=== PATIENT | male | born 1980 | race Hispanic/Latino ===

== ENCOUNTER 2020-01-06 17:49 | Emergency (ER) | payer OTHER ==
[2020-01-06] MEDS ORDERED: Ibuprofen 600 MG Tab PO ONE (18:01)
--- NOTE | 2020-01-06 18:05 | EDM.PDOC ---
ED HPI GENERAL MEDICAL PROBLEM - General Chief Complaint: Lower Extremity Injury/Pain Stated Complaint: TWISTED RIGHT KNEE Time Seen by Provider: 01/06/20 18:00 Source of Information: Reports: Patient History Limitations: Reports: No Limitations - History of Present Illness INITIAL COMMENTS - FREE TEXT/NARRATIVE: ED with c/o pain to right knee, states stepped down on to knee same time turning, pelt popping sensation and pain since. Knee feel unsteady, Denies prior injury to knee. Has not tried anything for discomfort. Right Knee Pain Score (Numeric/FACES): 7 - Related Data Allergies Allergy/AdvReac Type Severity Reaction Status Date / Time No Known Allergies Allergy Verified 01/06/20 18:09 Home Meds: Home Meds . [No Known Home Meds] 01/06/20 [History] Review of Systems - Review of Systems Review Of Systems: Comprehensive ROS is negative, except as noted in HPI. ED EXAM, GENERAL - Physical Exam Exam: See Below Exam Limited By: No Limitations General Appearance: Alert, Mild Distress Eye Exam: Bilateral Eye: EOMI, PERRL Ears: Normal External Exam, Hearing Grossly Normal Nose: Normal Inspection Throat/Mouth: Normal Inspection Head: Atraumatic, Normocephalic Neck: Normal Inspection Cardiovascular: Normal Peripheral Pulses, Regular Rate, Rhythm GI/Abdominal: Normal Bowel Sounds, No Distention Back Exam: Normal Inspection, Full Range of Motion Extremities: Normal Inspection, Limited Range of Motion (slight limitiation with flexion, crepitus, tender with palpation laterally. ) Neurological: Alert, Oriented, Normal Cognition Course - Vital Signs Last Recorded V/S: Last Vital Signs Temp 98.2 F 01/06/20 17:58 Pulse 116 H 01/06/20 17:58 Resp 18 01/06/20 17:58 BP 133/87 01/06/20 17:58 Pulse Ox 96 01/06/20 17:58 - Orders/Labs/Meds Meds: Medications Discontinued Medications Generic Name Dose Route Start Last Admin Trade Name Freq PRN Reason Stop Dose Admin Ibuprofen 600 mg 01/06/20 18:01 01/06/20 18:20 Motrin PO 01/06/20 18:02 600 mg ONETIME ONE Administration Departure - Departure Time of Disposition: 18:42 Disposition: Home, Self-Care 01 Condition: Good Clinical Impression: Knee pain, right Qualifiers: Chronicity: acute Qualified Code(s): M25.561 - Pain in right knee Medial collateral ligament sprain of knee Qualifiers: Encounter type: initial encounter Laterality: right Qualified Code(s): S83.411A - Sprain of medial collateral ligament of right knee, initial encounter - Discharge Information *PRESCRIPTION DRUG MONITORING PROGRAM REVIEWED*: No *COPY OF PRESCRIPTION DRUG MONITORING REPORT IN PATIENT JEWEL: No Instructions: Knee Sprain, Adult, [id number] Forms: ED Department Discharge Additional Instructions: yulia wrap or knee support ice elevate alternate tylenol and ibuprofen every 4 hours as needed for discomfort clinic follow up one week if not improving Sepsis Event Note (ED) - Evaluation Sepsis Screening Result: No Definite Risk - Focused Exam Vital Signs: Vital Signs Temp Pulse Resp BP Pulse Ox 01/06/20 17:58 98.2 F 116 H 18 133/87 96
--- NOTE | 2020-01-06 18:38 | CR ---
PROCEDURE INFORMATION: Exam: XR Right Knee Exam date and time: 01/06/2020 6:23 PM Age: 40 years old Clinical indication: Other: Twisted; Additional info: [place] knee pop, medial pain TECHNIQUE: Imaging protocol: XR Right knee. Views: 3 views. COMPARISON: No relevant prior studies available. FINDINGS: Bones/joints: The bones are intact and normal in appearance. There is no evidence of acute or healing fracture. The joints are normally aligned and articulated. Allowing for nearly 90 degree flexion of the lateral projection, no knee joint effusion is identified. Soft tissues: The soft tissues are within normal limits. IMPRESSION: Normal exam.
== END 2020-01-06 18:53 | disposition home or self-care (01) ==
LOC: DL.ED 17:49
DX: S83.411A Sprain of medial collateral ligament of right knee, initial encounter (principal); X50.9XXA Other and unspecified overexertion or strenuous movements or postures, initial encounter
CPT/HCPCS: 73562; 99283; A9270

== ENCOUNTER 2020-12-23 19:37 | Emergency (ER) | payer MEDICAID, OTHER ==
[2020-12-23 20:40] LABS: ANION GAP 16.6 mEq/L (7-13); CHLORIDE,CL 103 mmol/L (98-107); SODIUM,NA 142 mmol/L (136-145)
--- NOTE | 2020-12-23 20:51 | EDM.PDOCBH ---
ED HPI GENERAL MEDICAL PROBLEM - General Chief Complaint: Behavioral/Psych Stated Complaint: SUICIDAL THOUGHTS Time Seen by Provider: 12/23/20 19:55 Source of Information: Reports: Patient, RN History Limitations: Reports: No Limitations - History of Present Illness INITIAL COMMENTS - FREE TEXT/NARRATIVE: ED with report of having had suicidal thought after argument with girlfriend. Admits ETOH today approximately 8 beers. Admits daily heavy ETOH use. Today argument with girlfriend regarding her daughter. Patient states does not feel suicidal at present. Just off phone talking with dad in [place] reports plan to go home to [facility] and then head to [place] tomorrow and be back around family. - Related Data Allergies Allergy/AdvReac Type Severity Reaction Status Date / Time No Known Allergies Allergy Verified 12/23/20 19:48 Home Meds: Home Meds . [No Known Home Meds] 01/06/20 [History] Past Medical History Musculoskeletal History: Reports: Fracture Other Musculoskeletal History: shattered L ankle in 1997, surgically repaired Psychiatric History: Reports: Suicidal Ideation - Past Surgical History Musculoskeletal Surgical History: Reports: Other (See Below) Other Musculoskeletal Surgeries/Procedures:: left hand surgery Social & Family History - Family History Family Medical History: No Pertinent Family History - Tobacco Use Tobacco Use Status *Q: Current Every Day Tobacco User Years of Tobacco use: 23 Packs/Tins Daily: 0.3 Second Hand Smoke Exposure: Yes - Caffeine Use Caffeine Use: Reports: Soda - Recreational Drug Use Recreational Drug Use: No ED ROS GENERAL - Review of Systems Review Of Systems: Comprehensive ROS is negative, except as noted in HPI. ED EXAM, BEHAVIORAL HEALTH - Physical Exam Exam: See Below Exam Limited By: No Limitations General Appearance: Alert, Anxious, Thin Eye Exam: Bilateral Eye: EOMI Ears: Normal External Exam, Hearing Grossly Normal Throat/Mouth: Normal Inspection Head: Atraumatic, Normocephalic Respiratory/Chest: No Respiratory Distress, Lungs Clear, Normal Breath Sounds Cardiovascular: Regular Rate, Rhythm GI/Abdominal: Soft Neurological: Alert, Normal Cognition Psychiatric: Alert, Normal Cognition Skin Exam: Warm, Normal color COURSE, BEHAVIORAL HEALTH COMP - Course Vital Signs: Last Vital Signs Temp 99.2 F 12/23/20 19:43 Pulse 97 12/23/20 19:43 Resp 18 12/23/20 19:43 BP 137/101 H 12/23/20 19:43 Pulse Ox 98 06/15/21 19:43 Orders, Labs, Meds: Laboratory Tests 12/23/20 12/23/20 12/23/20 Range/Units 19:53 20:03 20:03 WBC 5.7 (5.0-10.0) 10^3/uL RBC 4.68 (4.6-6.2) 10^6/uL Hgb 14.9 (14.0-18.0) g/dL Hct 45.1 (40.0-54.0) % MCV 96.4 (80-100) fL MCH 31.8 (27.0-34.0) pg MCHC 33.0 (33.0-35.0) g/dL Plt Count 110 L (150-450) 10^3/uL Neut % (Auto) 41.9 L (42.2-75.2) % Lymph % (Auto) 38.9 (20.5-50.1) % [place] % (Auto) 8.7 H (2-8) % Eos % (Auto) 9.4 H (1.0-3.0) % Baso % (Auto) 1.1 H (0.0-1.0) % Sodium 142 (136-145) mmol/L Potassium 3.6 (3.5-5.1) mmol/L Chloride 103 (98-107) mmol/L Carbon Dioxide 26 (21-32) mmol/L Anion Gap 16.6 H (7-13) mEq/L BUN 6 L (7-18) mg/dL Creatinine 1.01 (0.70-1.30) mg/dL Est Cr Clr Drug Dosing 81.13 mL/min Estimated GFR (MDRD) > 60 BUN/Creatinine Ratio 5.9 (No establ ref range) Glucose 216 H (70-99) mg/dL Calcium 8.3 L (8.5-10.1) mg/dL Total Bilirubin 0.4 (0.2-1.0) mg/dL AST 173 H (15-37) U/L ALT 221 H (16-63) U/L Alkaline Phosphatase 76 (46-116) U/L Total Protein 8.4 H (6.4-8.2) g/dL Albumin 4.0 (3.4-5.0) g/dL Globulin 4.4 g/dL Albumin/Globulin Ratio 0.91 Urine Opiates Screen Negative (NEGATIVE) Ur Oxycodone Screen Negative (NEGATIVE) Urine Methadone Screen Negative (NEGATIVE) Ur Barbiturates Screen Negative (NEGATIVE) U Tricyclic Antidepress Negative (NEGATIVE) Ur Phencyclidine Scrn Negative (NEGATIVE) Ur Amphetamine Screen Negative (NEGATIVE) U Methamphetamines Scrn Negative (NEGATIVE) Urine MDMA Screen Negative (NEGATIVE) U Benzodiazepines Scrn Negative (NEGATIVE) Urine Cocaine Screen Negative (NEGATIVE) U Marijuana (THC) Screen Negative (NEGATIVE) Ethyl Alcohol 357 (0) mg/dL Re-Assessment/Re-Exam: Eloped while awaiting lab results. Departure - Departure Time of Disposition: 20:50 Disposition: Eloped 07 Condition: Fair Clinical Impression: Alcohol abuse, Suicidal thoughts - Discharge Information *PRESCRIPTION DRUG MONITORING PROGRAM REVIEWED*: No *COPY OF PRESCRIPTION DRUG MONITORING REPORT IN PATIENT JEWEL: No Forms: ED Department Discharge Sepsis Event Note (ED) - Evaluation Sepsis Screening Result: No Definite Risk
== END 2020-12-23 20:49 | disposition left against medical advice (07) ==
LOC: DL.ED 19:37
DX: F10.10 Alcohol abuse, uncomplicated (principal); Y90.8 Blood alcohol level of 240 mg/100 ml or more; Z72.0 Tobacco use
CPT/HCPCS: 36415; 80053; 80305-QW; 80307; 85025; 99283; 99284

== ENCOUNTER 2022-02-12 13:27 | Emergency (ER) | payer MEDICAID, OTHER ==
[2022-02-12] MEDS ORDERED: Lidocaine 1% 5 ML VIAL INJECT ONE (13:45)
== END 2022-02-12 14:15 | disposition home or self-care (01) ==
LOC: DL.ED 13:27
DX: S61.511A Laceration without foreign body of right wrist, initial encounter (principal); W26.8XXA Contact with other sharp object(s), not elsewhere classified, initial encounter
CPT/HCPCS: 12001; 99282